=== PATIENT | female | born 1955 | race Caucasian/White ===

== ENCOUNTER → 2016-12-05 | Outpatient (CLI) | payer BC | LOC: FIMAGING 12:42 | PROVIDERS: ATTEND Family Medicine | DX: Z12.31 Encounter for screening mammogram for malignant neoplasm of breast (principal) | CPT/HCPCS: G0202 ==

== ENCOUNTER → 2016-12-10 | Outpatient (CLI) | payer BC | LOC: FIMAGING 08:55 | PROVIDERS: ATTEND Family Medicine | DX: R92.8 Other abnormal and inconclusive findings on diagnostic imaging of breast (principal) | CPT/HCPCS: G0206 ==

== ENCOUNTER → 2017-10-02 | Outpatient (CLI) | payer BC | LOC: FIMAGING 08:54 | PROVIDERS: ATTEND Family Medicine | DX: R92.1 Mammographic calcification found on diagnostic imaging of breast (principal) ==

== ENCOUNTER 2018-06-18 18:03 | Emergency (ER) | payer BC ==
[2018-06-18] MEDS ORDERED: NS 1,000 ML IV ONE (19:00)
--- NOTE | 2018-06-18 19:26 | EDPHY ---
HPI/HX/ROS/PE/MDM Narrative: CHIEF COMPLAINT: High blood pressure HPI: The patient is a 62-year-old female with no history of hypertension. She reports elevated blood pressure readings over the course of yesterday and today. She states she has seen approximately 3 separate specialist over the last 48 hr, a stencil sprayer and ENT (for epistaxis) and an orthopedist, and was found have a blood pressure in the 170 systolic range on all these visits. She complains of a mild headache but denies numbness, weakness, blurry vision or other complaints. She denies chest pain or shortness of breath. She has not had any recent medication changes. She states that she had 1 brief episode of hypertension several years ago related to being on too much thyroid medication. REVIEW OF SYSTEMS: Aside from elements discussed in the HPI, a comprehensive 10-point review of systems was reviewed and is negative. PMH: Includes history of thyroid tumor with subtotal thyroidectomy. Arthritis. SOCIAL HISTORY: Denies alcohol or drug abuse. Works as a pharmacy order entry technician. PHYSICAL EXAM: General:Patient is alert, in no acute distress. ENT:Eyes are normal to inspection. ENT inspection normal. Neck: Normal inspection. Full range of motion. Respiratory:No respiratory distress. Breath sounds normal bilaterally. Cardiovascular: Regular rate and rhythm. Strong peripheral pulses. Normal cap refill. Abdomen:The abdomen is nontender to palpation. There are no peritoneal signs. There are normal bowel sounds. Back: Normal to inspection. No tenderness to palpation. Skin: Normal color. No rash. Warm and dry. Extremities: Normal appearance. Full range of motion. Neuro: Oriented x3. Normal motor function. Normal sensory function. MDM: This patient presents with asymptomatic hypertension. The etiology of her hypertension is unclear-there is no evidence for renal failure, hyperthyroidism , infectious process. The patient was treated single dose of Norvasc in the emergency department with good results. We will prescribe her a mild dose of this for the next week until she can follow up with her primary care provider. She is comfortable this plan. I see no sides of intracranial hemorrhage or end- organ damage. - Data Points Laboratory Results: Laboratory Results 06/18/18 20:00 06/18/18 20:00 06/18/18 06/18/18 20:00 20:00 WBC 6.63 10^3/uL 10^3/uL (3.80-9.50) RBC 4.61 10^6/uL 10^6/uL (4.18-5.33) Hgb 14.5 g/dL g/dL (12.6-16.3) Hct 42.5 % % (38.0-47.0) MCV 92.2 fL fL (81.5-99.8) MCH 31.5 pg pg (27.9-34.1) MCHC 34.1 g/dL g/dL (32.4-36.7) RDW 12.4 % % (11.5-15.2) Plt Count 238 10^3/uL 10^3/uL (150-400) MPV 9.5 fL fL (8.7-11.7) Neut % (Auto) 55.7 % % (39.3-74.2) Lymph % (Auto) 30.3 % % (15.0-45.0) Stone % (Auto) 11.2 % % (4.5-13.0) Eos % (Auto) 2.0 % % (0.6-7.6) Baso % (Auto) 0.6 % % (0.3-1.7) Nucleat RBC Rel Count 0.0 % % (0.0-0.2) Absolute Neuts (auto) 3.70 10^3/uL 10^3/uL (1.70-6.50) Absolute Lymphs (auto) 2.01 10^3/uL 10^3/uL (1.00-3.00) Absolute Monos (auto) 0.74 10^3/uL 10^3/uL (0.30-0.80) Absolute Eos (auto) 0.13 10^3/uL 10^3/uL (0.03-0.40) Absolute Basos (auto) 0.04 10^3/uL 10^3/uL (0.02-0.10) Absolute Nucleated RBC 0.00 10^3/uL 10^3/uL (0-0.01) Immature Gran % 0.2 % % (0.0-1.1) Immature Gran # 0.01 10^3/uL 10^3/uL (0.00-0.10) Sodium 138 mEq/L mEq/L (135-145) Potassium 3.9 mEq/L mEq/L (3.5-5.2) Chloride 103 mEq/L mEq/L (97-110) Carbon Dioxide 26 mEq/l mEq/l (22-31) Anion Gap 9 mEq/L mEq/L (6-14) BUN 14 mg/dL mg/dL (7-23) Creatinine 0.6 mg/dL mg/dL (0.6-1.0) Estimated GFR > 60 Glucose 112 mg/dL H mg/dL (70-100) Calcium 8.8 mg/dL mg/dL (8.5-10.4) TSH 1.520 uIU/mL uIU/mL (0.465-4.680) Medications Given: Discontinued Medications Amlodipine Besylate (Norvasc) 5 mg PO EDNOW ONE Stop: 06/18/18 21:57 Last Admin: 06/18/18 22:26 Dose: 5 mg Sodium Chloride (Ns) 1,000 mls @ 0 mls/hr IV EDNOW ONE; Wide Open PRN Reason: Protocol Stop: 06/18/18 19:01 Last Admin: 06/18/18 19:42 Dose: 1,000 mls Ibuprofen (Motrin) 600 mg PO EDNOW ONE Stop: 06/18/18 19:36 Last Admin: 06/18/18 19:40 Dose: 600 mg General Time Seen by Provider: 06/18/18 18:59 Initial Vital Signs: Initial Vital Signs Temperature (C) 37.1 C 06/18/18 18:13 Heart Rate 86 06/18/18 18:13 Respiratory Rate 18 06/18/18 18:13 Blood Pressure 162/102 H 06/18/18 18:13 O2 Sat (%) 95 06/18/18 18:13 O2 Delivery Mode Room Air Allergies/Adverse Reactions: acetaminophen [From Vicodin] Allergy (Verified 06/18/18 18:10) adhesive tape Allergy (Verified 06/18/18 18:10) hydrocodone bitartrate [From Vicodin] Allergy (Verified 06/18/18 18:10) oxycodone HCl [From Percocet] Allergy (Verified 06/18/18 18:10) oxycodone terephthalate [From Percodan] Allergy (Verified 06/18/18 18:10) Home Medications: Medication Instructions Recorded Acetaminophen/Codeine 300/30Mg 2 each PO Q6H PRN #30 tab 06/08/10 [Tylenol #3] Albuterol Sulfate [Albuterol HFA 2 puffs IH Q4-6PRN PRN 06/16/10 17g] CELECOXIB [Celebrex] 200 mg PO DAILY 06/16/10 DULoxetine [Cymbalta] 60 mg PO DAILY 06/16/10 Fluticasone Propionate [Flovent 10.6 gm IH DAILY 06/16/10 Hfa] LORAZEPAM 1 mg PO 06/16/10 Levothyroxine [Levothroid, 137 mcg PO BID 06/16/10 Synthroid] MONTELUKAST SODIUM [Singulair] 10 mg PO DAILY 06/16/10 Pantoprazole Sodium [Protonix] 40 mg PO BID 06/16/10 QUETIAPINE FUMARATE [Seroquel] 100 mg PO DAILY 06/16/10 amLODIPine BESYLATE [Norvasc 2.5 2.5 mg PO DAILY #10 tab 06/18/18 mg (*)] Departure - Departure Disposition: Home, Routine, Self-Care Clinical Impression: Hypertension Condition: Good Instructions: Hypertension (ED) Additional Instructions: Follow-up with your primary doctor within 72 hours. Return to the Emergency Department for fever, chest pain, shortness of breath, increasing pain or other worsening of condition. Referrals: Shubham Starks [Primary Care Provider] - As per Instructions Prescriptions: amLODIPine BESYLATE [Norvasc 2.5 mg (*)] 2.5 mg PO DAILY #10 tab
[2018-06-18] MEDS ORDERED: IBUPROFEN 600 MG TAB PO ONE (19:35)
[2018-06-18 20:15] LABS: PLATELET COUNT 238 10^3/uL (150-400)
[2018-06-18] MEDS ORDERED: amLODIPine BESYLATE 5 MG TAB PO ONE (21:56)
[2018-06-18 23:23] VITALS: BP 153/95
== END 2018-06-18 23:22 | disposition home or self-care (01) ==
DX: I10 Essential (primary) hypertension (principal)